=== PATIENT | female | born 1975 | race Caucasian/White ===

== ENCOUNTER 2016-10-19 22:10 | Observation (INO) | payer OTHER ==
[2016-10-19 22:21] VITALS: BMI 43.9
--- NOTE | 2016-10-19 22:33 | ED PDOC ---
Arrival/HPI - General Chief Complaint: Chest Pain Time Seen by Provider: 10/19/16 22:11 Historian: Patient - History of Present Illness Narrative History of Present Illness (Text): 10/19/16 22:33 Catalina Cisneros is a 40 year old female, whose past medical history includes diabetes, who presents to the Emergency department complaining of left-sided chest pain radiating to left shoulder for 4 days. Patient reports associated exertional dyspnea. Patient also notes she has been experiencing elevated blood sugars. Patient reports a family history of CAD. Patient denies any fever, chills, nausea, vomiting, diarrhea, urinary symptoms, back pain, neck pain, headache, dizziness, or any other complaints. Patietn states she regularly takes Metformin and insulin. Time/Duration: < week (4 days) Symptom Onset: Gradual Symptom Course: Unchanged Activities at Onset: Rest, Light Context: Home Past Medical History - Provider Review Nursing Documentation Reviewed: Yes - Infectious Disease Hx of Infectious Diseases: None - Tetanus Immunization Tetanus Immunization: Unknown - Endocrine/Metabolic Hx Diabetes Mellitus Type 2: Yes - Musculoskeletal/Rheumatological Hx Falls: No - Psychiatric Hx Depression: No Hx Emotional Abuse: No Hx Physical Abuse: No Hx Substance Use: No - Anesthesia Hx Anesthesia: No - Suicidal Assessment Feels Threatened In Home Enviroment: No Family/Social History - Physician Review Nursing Documentation Reviewed: Yes Family/Social History: Unknown Family HX Smoking Status: Never Smoked Hx Alcohol Use: No Hx Substance Use: No Hx Substance Use Treatment: No Allergies/Home Meds Allergies/Adverse Reactions: Allergies shellfish Allergy (Intermediate, Uncoded 10/19/16 22:23) RASH Home Medications: Home Meds Medication Instructions Recorded Confirmed Insulin NPH Human Isophane 30 unit SQ HS 10/19/16 10/19/16 [Novolin N] metFORMIN [glucOPHAGE] 500 mg PO BID 10/19/16 10/19/16 Review of Systems - Physician Review All systems were reviewed & negative as marked: Yes - Review of Systems Constitutional: Normal. absent: Fevers Eyes: Normal ENT: Normal Cardiovascular: Chest Pain, ZIMMERMAN Gastrointestinal: Normal. absent: Abdominal Pain, Diarrhea, Nausea, Vomiting Genitourinary Female: Normal. absent: Dysuria, Frequency, Hematuria, Urine Output Changes Musculoskeletal: Normal. absent: Neck Pain Skin: Normal. absent: Rash Neurological: Normal. absent: Headache, Dizziness Hemo/Lymphatic: Normal Psychiatric: Normal Physical Exam Vital Signs Reviewed: Yes Vital Signs Temp Pulse Resp BP Pulse Ox 10/20/16 01:17 84 18 127/87 98 10/19/16 22:27 99.0 F 76 20 154/84 H 99 Temperature: Afebrile Blood Pressure: Hypertensive Pulse: Regular Respiratory Rate: Normal Appearance: Positive for: Well-Appearing, Non-Toxic, Comfortable Pain Distress: None Mental Status: Positive for: Alert and Oriented X 3 Finger Stick Blood Glucose: 413 - Systems Exam Head: Present: Atraumatic, Normocephalic Pupils: Present: PERRL Extroacular Muscles: Present: EOMI Conjunctiva: Present: Normal Mouth: Present: Moist Mucous Membranes Neck: Present: Normal Range of Motion Respiratory/Chest: Present: Clear to Auscultation, Good Air Exchange. No: Respiratory Distress, Accessory Muscle Use Cardiovascular: Present: Regular Rate and Rhythm, Normal S1, S2. No: Murmurs Abdomen: Present: Normal Bowel Sounds. No: Tenderness, Distention, Peritoneal Signs Back: Present: Normal Inspection Upper Extremity: Present: Normal Inspection. No: Cyanosis, Edema Lower Extremity: Present: Normal Inspection. No: Edema Neurological: Present: GCS=15, CN II-XII Intact, Speech Normal Skin: Present: Warm, Dry, Normal Color. No: Rashes Psychiatric: Present: Alert, Oriented x 3, Normal Insight, Normal Concentration Medical Decision Making ED Course and Treatment: 10/19/16 22:33 Impression: 40 year old female complaining of left-sided chest pain radiating to left shoulder with some exertional dyspnea. Plan: -- EKG -- Chest X-ray -- Labs, cardiac enzymes -- Aspirin -- Reassess and disposition Progress Notes: Reviewed EKG, NSR at [address]pm[address] Non-specific ST/T wave changes. 10/20/16 00:28 Reviewed radiology, Chest X-ray shows no acute processes. Case discussed with lpn or medical assistant and Dr. Mueller, who is aware and agrees with plan. Accepts pt in to hospitalist service. Pt will go to Telemetry observation for chest pain. chairman president and chief executive officer notified. Pt is no acute distress. Discussed results and hospital observation plan with pt , who is aware and verbalizes understanding. - Lab Interpretations Lab Results: 10/19/16 22:45 10/19/16 22:45 Lab Results 10/19/16 22:45: WBC 8.3 D, RBC 4.82, Hgb 13.4, Hct 39.3, MCV 81.5, MCH 27.8, MCHC 34.1, RDW 13.9, Plt Count 244, MPV 10.4 10/19/16 22:45: Sodium 135, Potassium 4.5, Chloride 100, Carbon Dioxide 25, Anion Gap 15, BUN 16, Creatinine 1.1, Est GFR ( Amer) > 60, Est GFR (Non- Af Amer) 54, Random Glucose 395 H* D, Calcium 9.4, Total Bilirubin 0.4, AST 21, ALT 34, Alkaline Phosphatase 97, Lactate Dehydrogenase 389, Total Creatine Kinase 113, Troponin I < 0.01, Total Protein 7.3, Albumin 4.2, Globulin 3.1, Albumin/Globulin Ratio 1.4 10/19/16 22:45: PT 10.3, INR 0.95, APTT 25.0 I have reviewed the lab results: Yes - RAD Interpretation Radiology Orders: 10/19/16 22:34 CHEST PORTABLE [RAD] Stat Hcc Coders: ED Physician - EKG Interpretation Interpreted by ED Physician: Yes Type: 12 lead EKG - Medication Orders Current Medication Orders: Insulin Human Regular (Humulin R Med) 0 units SC ACHS AARON PRN Reason: Protocol Discontinued Medications Aspirin (Aspirin) 325 mg PO ONCE STA Stop: 10/19/16 22:42 Last Admin: 10/19/16 23:08 Dose: 325 mg Sodium Chloride (Sodium Chloride 0.9%) 500 mls @ 500 mls/hr IV .Q1H STA Stop: 10/19/16 23:46 Last Admin: 10/19/16 23:05 Dose: 500 mls/hr Insulin Human Regular (Humulin R) 8 units SC STAT STA Stop: 10/19/16 22:49 Last Admin: 10/19/16 23:38 Dose: 8 units - Scribe Statement The provider has reviewed the documentation as recorded by the Jeannie Aviles Provider Scribe Attestation: All medical record entries made by the Scribe were at my direction and personally dictated by me. I have reviewed the chart and agree that the record accurately reflects my personal performance of the history, physical exam, medical decision making, and the department course for this patient. I have also personally directed, reviewed, and agree with the discharge instructions and disposition. Disposition/Present on Arrival - Present on Arrival Any Indicators Present on Arrival: No History of DVT/PE: No History of Uncontrolled Diabetes: No Urinary Catheter: No History of Decub. Ulcer: No History Surgical Site Infection Following: None - Disposition Have Diagnosis and Disposition been Completed?: Yes Diagnosis: Chest pain Disposition: HOSPITALIZED Disposition Time: 00:23 Patient Plan: Observation Patient Problems: Current Active Problems Problem Status Onset Chest pain Acute Condition: STABLE
[2016-10-19] MEDS ORDERED: Sodium Chloride 0.9% 500 ML IV STA (22:47)
[2016-10-19] MEDS ORDERED: Insulin Regular 1 UNITS/0.01 ML ML SC STA (22:48)
[2016-10-19 22:55] LABS: HEMATOCRIT 39.3 % (36.0-48.0); MEAN CELL VOLUME 81.5 fl (80.0-105.0); MEAN CORPUSCULAR HEMOGLOBIN 27.8 pg (25.0-35.0); MEAN CORPUSCULAR HGB CONC 34.1 g/dl (31.0-37.0); MEAN PLATELET VOLUME 10.4 fl (7.0-11.0); RED CELL DISTRIBUTION WIDTH 13.9 % (11.5-14.5); WHITE BLOOD COUNT 8.3 10^3/ul (4.5-11.0)
[2016-10-19 23:00] LABS: ALB/GLOB RATIO 1.4 (1.1-1.8); ALKALINE PHOSPHATASE 97 U/L (38-133); ALT/SGPT 34 U/L (7-56); AST/SGOT 21 U/L (15-39); BILIRUBIN,TOTAL 0.4 mg/dL (0.2-1.3); BLOOD UREA NITROGEN 16 mg/dL (7-21); CALCIUM 9.4 mg/dL (8.4-10.5); CARBON DIOXIDE 25 mmol/L (21-33); CHLORIDE 100 mmol/L (98-107); GFR AFRICAN-AMERICAN > 60; POTASSIUM 4.5 mmol/L (3.6-5.0); SODIUM 135 mmol/L (132-148); TOTAL PROTEIN 7.3 g/dL (5.8-8.3)
[2016-10-19 23:04] LABS: GLUCOSE,RANDOM 395 mg/dL (70-110)
[2016-10-19 23:06] LABS: INR 0.95 (0.93-1.08)
[2016-10-19 23:12] LABS: TROPONIN I < 0.01 ng/mL
[2016-10-20 01:18] VITALS: O2SAT 98
--- NOTE | 2016-10-20 05:35 | CP.PCM.HP ---
<Deisi Rizo - Last Filed: 10/20/16 05:52> History of Present Illness - History of Present Illness History of Present Illness: Deisi Rizo DO, PGY-1, Night Float CC: Chest pain 40 year old obese, diabetic female with 4 days of left-sided chest pain and 2 days of shortness of breath when going up two flights of stairs. She denies any diaphoresis, nausea, but admits to radiation of the pain into the left axilla. On further questioning she informs me that her at its the worst when she lays down at night. Important to note, that she takes Advil gel tablets regularly for left sided shoulder pain, and in the last four days started taking aspirin 4 in addition to the advil for the left-sided shoulder pain. 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 She She also complains of trouble controlling her blood sugar since switching from Novolin-R to Novolin-N. Her risk factors for CAD are poorly controlled DM, obesity, a mother with CAD with 2 stents. She also admits to recent stress from her being unemployed, and her having to take on a new job and manage 4 children at home. PMH: DM PSH: none Allergies: shellfish Medications: Advil, aspirin, Metformin 500 mg BID, Novolin-N 30 units in AM, 15 units before dinner FH: As above Social: As above, no drugs, but exposure of tobacco smoke from Present on Admission - Present on Admission Any Indicators Present on Admission: No Review of Systems - Constitutional Additional comments: weight fluctuations - EENT Eyes: absent: Blurred Vision, Exophthalmos, Loss of Peripheral Vision Ears: absent: Ear Discharge, Dizziness Nose/Mouth/Throat: absent: Bleeding Gums, Mouth Pain, Odynophagia - Cardiovascular Cardiovascular: absent: Irregular Heart Rhythm, Leg Edema, Pedal Edema - Respiratory Respiratory: Dyspnea on Exertion - Gastrointestinal Gastrointestinal: Belching, Bloating - Genitourinary Genitourinary: absent: Change in Urinary Stream, Hematuria, Urinary Frequency - Musculoskeletal Musculoskeletal: absent: Arthralgias, Atrophy, Joint Swelling - Integumentary Integumentary: absent: Changing Lesions, Hirsutism, New Lesions, Unusual Bruising - Neurological Neurological: absent: Abnormal Gait, Disequilibrium, Lack of Coordination - Psychiatric Psychiatric: absent: Behavioral Changes, Homicidal Ideation, Mood Swings - Endocrine Endocrine: absent: Change in Libido, Deepening of Voice, Heat Intolorance - Hematologic/Lymphatic Hematologic: absent: Easy Bleeding, Easy Bruising Past Patient History - Infectious Disease Hx of Infectious Diseases: None - Tetanus Immunizations Tetanus Immunization: Unknown - Past Social History Smoking Status: Never Smoked - ENDOCRINE/METABOLIC Hx Diabetes Mellitus Type 2: Yes - MUSCULOSKELETAL/RHEUMATOLOGICAL Hx Falls: No - PSYCHIATRIC Hx Depression: No Hx Emotional Abuse: No Hx Physical Abuse: No Hx Substance Use: No - SURGICAL HISTORY Hx Surgeries: No - ANESTHESIA Hx Anesthesia: No Meds Allergies/Adverse Reactions: Allergies Allergy/AdvReac Type Severity Reaction Status Date / Time shellfish Allergy Intermediate RASH Uncoded 10/19/16 22:23 Physical Exam - Constitutional Appears: Well, No Acute Distress - Head Exam Head Exam: ATRAUMATIC, NORMOCEPHALIC - Eye Exam Eye Exam: EOMI, Normal appearance, PERRL - ENT Exam ENT Exam: Mucous Membranes Moist, Normal Oropharynx - Neck Exam Neck exam: Positive for: Normal Inspection. Negative for: Lymphadenopathy, Thyromegaly - Respiratory Exam Respiratory Exam: Clear to Auscultation Bilateral, NORMAL BREATHING PATTERN. absent: Respiratory Distress - Cardiovascular Exam Cardiovascular Exam: +S1, +S2 Additional comments: bowel sounds heard on chest auscultation - GI/Abdominal Exam GI & Abdominal Exam: Normal Bowel Sounds, Soft. absent: Distended, Guarding, Rebound - Extremities Exam Extremities exam: Positive for: normal capillary refill, normal inspection, pedal pulses present. Negative for: pedal edema - Back Exam Back exam: absent: CVA tenderness (L), CVA tenderness (R) - Neurological Exam Neurological exam: Alert, CN II-XII Intact, Normal Gait, Oriented x3 - Psychiatric Exam Psychiatric exam: Normal Affect, Normal Mood - Skin Skin Exam: Dry, Intact, Normal Color, Warm Results - Vital Signs Recent Vital Signs: Last Vital Signs Temp 98.0 F 10/20/16 02:59 Pulse 79 10/20/16 02:59 Resp 20 10/20/16 02:59 BP 124/84 10/20/16 02:59 Pulse Ox 98 10/20/16 01:17 - Labs Result Diagrams: 10/19/16 22:45 10/19/16 22:45 Labs: Laboratory Results - last 24 hr 10/20/16 01:10 POC Glucose (mg/dL) 284 H - EKG Data EKG Interpreted by: Myself EKG shows normal: Sinus rhythm Rate: Normal Assessment & Plan - Assessment and Plan (Free Text) Assessment: 40 year old obese diabetic female with atypical chest pain and SOB. Plan: 1) Atypical chest pain in an obese, diabetic female - Initial EKG and troponin (-) - Follow troponin x 2 - Cardiology consulted - HgbA1c, TSH, Lipid Panel 2) DM, poorly controlled - Hold Metformin - Started ISS NPH medium - HHD, low carbohydrate diet 3) Possible reflux, exacerbated by NSAID use, aspirin, and underlying gastroparesis - Protonix 40 mg PO daily - Date & Time Date: 10/20/16 Time: 05:46 <Cami Mueller - Last Filed: 10/20/16 06:36> Results - Vital Signs Recent Vital Signs: Last Vital Signs Temp 98.0 F 10/20/16 02:59 Pulse 79 10/20/16 02:59 Resp 20 10/20/16 02:59 BP 124/84 10/20/16 02:59 Pulse Ox 98 10/20/16 01:17 - Labs Result Diagrams: 10/19/16 22:45 10/19/16 22:45 Labs: Laboratory Results - last 24 hr 10/20/16 01:10 POC Glucose (mg/dL) 284 H Attending/Attestation - Attestation I have personally seen and examined this patient.: Yes I have fully participated in the care of the patient.: Yes I have reviewed all pertinent clinical information: Yes Notes (Text): 10/20/16 06:31 Patient was seen when she was in -. Agree with history, physical examination, assessment and plan. States that her blood sugar was 496 mg % when she was home, had nagging pain in left shoulder and precordial area for 4 days , intermittent, had sob with climbing stairs yesterday, has PMH of IDDM, obesity, allergy to shellfish, has family history of following: both sides of family have DM, mother has heart disease, paternal grand mother has cancer of unknown location, father had DM and lung cancer, consumes alcohol occasionally, review of system shows that she gained 21 lbs in last 3 months, has seasonal allergies, bronchitis.
[2016-10-20 06:40] LABS: ALB/GLOB RATIO 1.3 (1.1-1.8); ALKALINE PHOSPHATASE 73 U/L (38-133); ALT/SGPT 31 U/L (7-56); AST/SGOT 20 U/L (15-39); BILIRUBIN,TOTAL 0.3 mg/dL (0.2-1.3); BLOOD UREA NITROGEN 15 mg/dL (7-21); CALCIUM 8.9 mg/dL (8.4-10.5); CARBON DIOXIDE 26 mmol/L (21-33); CHLORIDE 105 mmol/L (98-107); CHOLESTEROL 188 mg/dL (130-200); GFR AFRICAN-AMERICAN > 60; GLUCOSE,RANDOM 154 mg/dL (70-110); POTASSIUM 4.2 mmol/L (3.6-5.0); SODIUM 139 mmol/L (132-148); TOTAL PROTEIN 6.8 g/dL (5.8-8.3)
[2016-10-20] MEDS: Pantoprazole 40 mg EC Tab PO SCH ×2 (06:48→17:00)
[2016-10-20 07:21] LABS: TROPONIN I < 0.01 ng/mL
--- NOTE | 2016-10-20 07:38 | RAD ---
HISTORY: chest pain COMPARISON: No prior. FINDINGS: LUNGS: No active pulmonary disease. PLEURA: No evidence of pleural effusion. Mild nonspecific elevation of right hemidiaphragm. CARDIOVASCULAR: Normal. OSSEOUS STRUCTURES: No significant abnormalities. VISUALIZED UPPER ABDOMEN: Normal. OTHER FINDINGS: None. IMPRESSION: No active disease.
[2016-10-20] MEDS: Insulin Reg-MEDIUM-Coverage SC SCH ×3 (08:26→17:00)
[2016-10-20] MEDS: Enoxaparin 40 mg Syringe SC SCH (09:34)
[2016-10-20 17:48] VITALS: TEMP 98.4
--- NOTE | 2016-10-20 20:02 | CARD ---
APPROVED REPORT EKG Measurement Heart [id number] <Conclusion> Normal sinus rhythm Possible Left atrial enlargement Borderline ECG
[2016-10-20] MEDS ORDERED: Insulin Detemir 100 units/ml Vial (Levemir) SC SCH (22:00)
--- NOTE | 2016-10-21 00:59 | CON ---
CARDIOLOGY CONSULT REASON FOR CONSULTATION: Chest pain. HISTORY OF PRESENT ILLNESS: The patient is a 40-year-old female, originally from [facility], who has a history of diabetes mellitus, who presented because of left-sided chest pain radiating to left shoulder. The patient is unaware of any prior cardiac history. The patient did undergo echocardiography study recently at [facility] and was told it was normal. The patient denies any palpitation, dizziness or syncope. SOCIAL HISTORY: The patient is a nonsmoker, nondrinker. MEDICATIONS: Lovenox 40 mg subcutaneous once a daily, Protonix 40 mg p.o. twice a day, Nitrostat p.r.n. REVIEW OF SYSTEMS: No fever or chills. No productive cough. No vomiting or diarrhea. PHYSICAL EXAMINATION GENERAL: The patient is a middle-aged female, who does not appear to be in any distress. VITAL SIGNS: Blood pressure 137/79, heart rate 79, temperature 98.7, respirations 20. HEENT: Normocephalic. NECK: No JVD. CHEST: Clear. HEART: S1 and S2 regular. ABDOMEN: Soft. EXTREMITIES: No edema. LABORATORY DATA: SMA-7 is within normal limits except for glucose of 154. Hemoglobin A1c is elevated at 10.2, triglycerides elevated at 217, the rest of lipid profile is within limits. TSH level is within normal limits. CBC is within normal limits. . PT, PTT are within normal limits. EKG revealed sinus rhythm with possible left atrial enlargement. Two sets of troponins are negative. ASSESSMENT: 1. Chest pain, myocardial infraction is ruled-out. 2. Uncontrolled diabetes mellitus. 3. Hypertriglyceridemia. RECOMMENDATIONS: Continue prophylactic subcutaneous Lovenox. Continue nitroglycerin, start aspirin 81 mg once a day, obtain an echocardiogram. Ethan Douglass MD
[2016-10-21] MEDS: Insulin Reg-MEDIUM-Coverage SC SCH ×5 (04:48→21:41)
[2016-10-21] MEDS: Pantoprazole 40 mg EC Tab PO SCH ×2 (06:01→17:11)
[2016-10-21 08:15] LABS: HEMATOCRIT 40.7 % (36.0-48.0); MEAN CELL VOLUME 80.8 fl (80.0-105.0); MEAN CORPUSCULAR HEMOGLOBIN 28.2 pg (25.0-35.0); MEAN CORPUSCULAR HGB CONC 34.9 g/dl (31.0-37.0); RED CELL DISTRIBUTION WIDTH 14.2 % (11.5-14.5); WHITE BLOOD COUNT 8.3 10^3/ul (4.5-11.0)
[2016-10-21 08:27] LABS: ALB/GLOB RATIO 1.2 (1.1-1.8); ALKALINE PHOSPHATASE 72 U/L (38-133); ALT/SGPT 33 U/L (7-56); AST/SGOT 16 U/L (15-39); BLOOD UREA NITROGEN 14 mg/dL (7-21); CARBON DIOXIDE 22 mmol/L (21-33); CHLORIDE 101 mmol/L (95-110); GFR AFRICAN-AMERICAN > 60; POTASSIUM 4.3 mmol/L (3.6-5.0); SODIUM 133 mmol/L (132-148); TOTAL PROTEIN 7.4 g/dL (5.8-8.3)
[2016-10-21 08:35] LABS: GLUCOSE,RANDOM 320 mg/dL (70-110)
[2016-10-21] MEDS: Enoxaparin 40 mg Syringe SC SCH (09:56)
[2016-10-21 11:54] VITALS: RESP 20
--- NOTE | 2016-10-21 15:13 | CARD ---
APPROVED REPORT EXAM: Two-dimensional and M-mode echocardiogram with Doppler and color Doppler. INDICATION Chest Pain 2D DIMENSIONS Left Atrium (2D)3.6 (1.6-4.0cm)IVSd1.1 (0.7-1.1cm) LVDd3.9 (3.9-5.9cm)PWd1.0 (0.7-1.1cm) LVDs2.6 (2.5-4.0cm)FS (%) 33.0 % LVEF (%)62.3 (>50%) M-Mode DIMENSIONS Aortic Root2.40 (2.2-3.7cm)Aortic Cusp Exc.1.70 (1.5-2.0cm) Aortic Valve AoV Peak Evoyjeea567.0cm/Aniceto Peak GR.8mmHg Mitral Valve MV E Zijfvvod69.9cm/sMV A Kpffjldn38.2cm/sE/A ratio1.0 TDI E/Lateral E'0.0E/Medial E'0.0 Tricuspid Valve TR Peak [id number]/sRAP [id number] Peak Gr.14mmHg [id number] LEFT VENTRICLE The left ventricle is normal size. There is normal left ventricular wall thickness. The left ventricular function is normal. The left ventricular ejection fraction is within the normal range. There is normal LV segmental wall motion. Transmitral Doppler flow pattern is Grade I-abnormal relaxation pattern. RIGHT VENTRICLE The right ventricle is normal size. There is normal right ventricular wall thickness. The right ventricular systolic function is normal. ATRIA The left atrium size is normal. The right atrium size is normal. AORTIC VALVE The aortic valve is not well visualized. No aortic regurgitation is present. There is no aortic valvular stenosis. MITRAL VALVE The mitral valve is normal in structure. There is no mitral valve regurgitation noted. TRICUSPID VALVE The tricuspid valve is normal in structure. GREAT VESSELS The aortic root is normal in size. The IVC was not visualized. <Conclusion> The left ventricle is normal size. There is normal left ventricular wall thickness. The left ventricular function is normal. The left ventricular ejection fraction is within the normal range. There is normal LV segmental wall motion. Transmitral Doppler flow pattern is Grade I-abnormal relaxation pattern.
--- NOTE | 2016-10-21 16:07 | CP.PCM.DIS ---
<COLIN LOMAS - Last Filed: 10/21/16 20:59> Provider - Provider Date of Admission: 10/20/16 00:19 Attending physician: Huy Holland MD Primary care physician: NO PRIMARY CARE PROVIDER Consults: Cardio: Rafat Time Spent in preparation of Discharge (in minutes): 45 Hospital Course - Lab Results Lab Results: Most Recent Lab Values WBC 8.3 10^3/ul (4.5-11.0) 10/21/16 08:00 RBC 5.04 10^6/uL (3.5-6.1) 10/21/16 08:00 Hgb 14.2 g/dL (12.0-16.0) 10/21/16 08:00 Hct 40.7 % (36.0-48.0) 10/21/16 08:00 MCV 80.8 fl (80.0-105.0) 10/21/16 08:00 MCH 28.2 pg (25.0-35.0) 10/21/16 08:00 MCHC 34.9 g/dl (31.0-37.0) 10/21/16 08:00 RDW 14.2 % (11.5-14.5) 10/21/16 08:00 Plt Count 259 10^3/uL (120.0-450.0) 10/21/16 08:00 MPV 10.0 fl (7.0-11.0) 10/21/16 08:00 PT 10.3 Seconds (9.9-11.8) 10/19/16 22:45 INR 0.95 (0.93-1.08) 10/19/16 22:45 APTT 25.0 Seconds (23.7-30.8) 10/19/16 22:45 D-Dimer, Quantitative 0.24 mg/L FEU (0-0.50) 10/20/16 12:55 Sodium 133 mmol/L (132-148) 10/21/16 08:00 Potassium 4.3 mmol/L (3.6-5.0) 10/21/16 08:00 Chloride 101 mmol/L (95-110) 10/21/16 08:00 Carbon Dioxide 22 mmol/L (21-33) 10/21/16 08:00 Anion Gap 14 (10-20) 10/21/16 08:00 BUN 14 mg/dL (7-21) 10/21/16 08:00 Creatinine 0.6 mg/dL (0.5-1.4) 10/21/16 08:00 Est GFR ( Amer) > 60 10/21/16 08:00 Est GFR (Non-Af Amer) > 60 10/21/16 08:00 POC Glucose (mg/dL) 365 mg/dL (65-110) H 10/21/16 11:08 Random Glucose 320 mg/dL (70-110) H* 10/21/16 08:00 Hemoglobin A1c 10.2 % (4.2-6.5) H 10/20/16 05:45 Calcium 9.0 mg/dL (8.4-10.5) 10/21/16 08:00 Total Bilirubin 1.0 mg/dL (0.2-1.3) 10/21/16 08:00 AST 16 U/L (15-39) 10/21/16 08:00 ALT 33 U/L (7-56) 10/21/16 08:00 Alkaline Phosphatase 72 U/L (38-133) 10/21/16 08:00 Lactate Dehydrogenase 389 U/L (333-699) 10/19/16 22:45 Total Creatine Kinase 113 U/L (35-230) 10/19/16 22:45 Troponin I < 0.01 ng/mL 10/20/16 12:55 NT-Pro-B Natriuret Pep 132 pg/mL (0-450) 10/20/16 05:45 Total Protein 7.4 g/dL (5.8-8.3) 10/21/16 08:00 Albumin 4.0 g/dL (3.0-4.8) 10/21/16 08:00 Globulin 3.4 gm/dL 10/21/16 08:00 Albumin/Globulin Ratio 1.2 (1.1-1.8) 10/21/16 08:00 Triglycerides 217 mg/dL (35-160) H 10/20/16 05:45 Cholesterol 188 mg/dL (130-200) 10/20/16 05:45 LDL Cholesterol Direct 112 mg/dL (0-129) 10/20/16 05:45 HDL Cholesterol 35 mg/dL (29-60) 10/20/16 05:45 TSH 3rd Generation 3.96 mIU/mL (0.46-4.68) 10/20/16 05:45 Urine HCG, Qual Negative (NEGATIVE) 10/20/16 16:22 - Hospital Course Hospital Course: 40 year old obese, diabetic female with 4 days of left-sided chest pain and 2 days of shortness of breath when going up two flights of stairs. She denied any diaphoresis, nausea, but admits to radiation of the pain into the left axilla. On further questioning she informs me that her at its the worst when she lays down at night. Important to note, that she takes Advil gel tablets regularly for left sided shoulder pain, and in the last four days started taking aspirin 4 in addition to the advil for the left-sided shoulder pain. 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 She also complained of trouble controlling her blood sugar since switching from Novolin- R to Novolin-N. Her risk factors for CAD are poorly controlled DM, obesity, a mother with CAD with 2 stents. She also admits to recent stress from her being unemployed, and her having to take on a new job and manage 4 children at home. In the ED, labs and imaging were obtained. Labs were unremarkable aside from elevated glucose at 395. EKG showed NSR. Troponin x1 was negative. CXR showed no active disease. Pt was admitted for chest pain r/o acs. Cardio consulted recommended lovenox, ASA, nitroglycerin and echo. Echo showed EF of 62.3%. Troponin trended was negative x2. Lipid panel and TSH is WNL. Today pt was seen and examined at bedside. Pt denies any acute overnight events. Pt denies CP, SOB, n/v/d, chills, fever, abdominal pain, HERMAN, dizziness, dysuria, or constipation. Pt discharged and instructed to increase Metformin to 1000 mg BID and increase Insulin NPH to 30 units twice a day. Pt also advised to follow up with PMD and cardiology outpatient. Discharge Exam - Head Exam Head Exam: ATRAUMATIC, NORMOCEPHALIC - Eye Exam Eye Exam: EOMI, PERRL - ENT Exam ENT Exam: Mucous Membranes Moist - Neck Exam Neck exam: Full Rom - Respiratory Exam Respiratory Exam: Clear to PA & Lateral. absent: Rales, Rhonchi, Wheezes - Cardiovascular Exam Cardiovascular Exam: RRR, +S1, +S2. absent: Diastolic murmur, Gallop, Rubs, Systolic Murmur - GI/Abdominal Exam GI & Abdominal Exam: Soft. absent: Distended, Guarding, Organomegaly, Rebound, Rigid, Tenderness - Extremities Exam Extremities exam: normal inspection - Back Exam Back exam: NORMAL INSPECTION - Neurological Exam Neurological exam: Alert, CN II-XII Intact, Oriented x3, Reflexes Normal - Psychiatric Exam Psychiatric exam: Normal Affect, Normal Mood - Skin Skin Exam: Dry, Intact, Normal Color, Warm Discharge Plan - Discharge Medications Prescriptions: Insulin NPH Human Isophane [Novolin N] 30 unit SQ AMHS #2 metFORMIN [glucOPHAGE] 1,000 mg PO BID #30 - Follow Up Plan Condition: STABLE Disposition: HOME/ ROUTINE Instructions: Chest Pain (DC), Chest Pain (GEN), Diabetes Mellitus Type 2 in Adults (DC), Diabetes Mellitus Type 2 in Adults (GEN) Additional Instructions: 1. Follow with PMD of your choice within 1 week 2. Follow with statistician applied within 1 week 3. Take medications as prescribed: Metformin 1000 mg twice a day, Insulin NPH 30 units in morning and evening 4. Return to ED if condition or symptoms worsen Referrals: Ethan Douglass MD [Staff Provider] - PCP,ROGER [Primary Care Provider] - <Huy Holland - Last Filed: 10/22/16 07:35> Provider - Provider Date of Admission: 10/20/16 00:19 Attending physician: Huy Holland MD Primary care physician: ROGER PRIMARY CARE PROVIDER Hospital Course - Lab Results Lab Results: Most Recent Lab Values WBC 8.3 10^3/ul (4.5-11.0) 10/21/16 08:00 RBC 5.04 10^6/uL (3.5-6.1) 10/21/16 08:00 Hgb 14.2 g/dL (12.0-16.0) 10/21/16 08:00 Hct 40.7 % (36.0-48.0) 10/21/16 08:00 MCV 80.8 fl (80.0-105.0) 10/21/16 08:00 MCH 28.2 pg (25.0-35.0) 10/21/16 08:00 MCHC 34.9 g/dl (31.0-37.0) 10/21/16 08:00 RDW 14.2 % (11.5-14.5) 10/21/16 08:00 Plt Count 259 10^3/uL (120.0-450.0) 10/21/16 08:00 MPV 10.0 fl (7.0-11.0) 10/21/16 08:00 PT 10.3 Seconds (9.9-11.8) 10/19/16 22:45 INR 0.95 (0.93-1.08) 10/19/16 22:45 APTT 25.0 Seconds (23.7-30.8) 10/19/16 22:45 D-Dimer, Quantitative 0.24 mg/L FEU (0-0.50) 10/20/16 12:55 Sodium 133 mmol/L (132-148) 10/21/16 08:00 Potassium 4.3 mmol/L (3.6-5.0) 10/21/16 08:00 Chloride 101 mmol/L (95-110) 10/21/16 08:00 Carbon Dioxide 22 mmol/L (21-33) 10/21/16 08:00 Anion Gap 14 (10-20) 10/21/16 08:00 BUN 14 mg/dL (7-21) 10/21/16 08:00 Creatinine 0.6 mg/dL (0.5-1.4) 10/21/16 08:00 Est GFR ( Amer) > 60 10/21/16 08:00 Est GFR (Non-Af Amer) > 60 10/21/16 08:00 POC Glucose (mg/dL) 319 mg/dL (65-110) H 10/21/16 16:19 Random Glucose 320 mg/dL (70-110) H* 10/21/16 08:00 Hemoglobin A1c 10.2 % (4.2-6.5) H 10/20/16 05:45 Calcium 9.0 mg/dL (8.4-10.5) 10/21/16 08:00 Total Bilirubin 1.0 mg/dL (0.2-1.3) 10/21/16 08:00 AST 16 U/L (15-39) 10/21/16 08:00 ALT 33 U/L (7-56) 10/21/16 08:00 Alkaline Phosphatase 72 U/L (38-133) 10/21/16 08:00 Lactate Dehydrogenase 389 U/L (333-699) 10/19/16 22:45 Total Creatine Kinase 113 U/L (35-230) 10/19/16 22:45 Troponin I < 0.01 ng/mL 10/20/16 12:55 NT-Pro-B Natriuret Pep 132 pg/mL (0-450) 10/20/16 05:45 Total Protein 7.4 g/dL (5.8-8.3) 10/21/16 08:00 Albumin 4.0 g/dL (3.0-4.8) 10/21/16 08:00 Globulin 3.4 gm/dL 10/21/16 08:00 Albumin/Globulin Ratio 1.2 (1.1-1.8) 10/21/16 08:00 Triglycerides 217 mg/dL (35-160) H 10/20/16 05:45 Cholesterol 188 mg/dL (130-200) 10/20/16 05:45 LDL Cholesterol Direct 112 mg/dL (0-129) 10/20/16 05:45 HDL Cholesterol 35 mg/dL (29-60) 10/20/16 05:45 TSH 3rd Generation 3.96 mIU/mL (0.46-4.68) 10/20/16 05:45 Urine HCG, Qual Negative (NEGATIVE) 10/20/16 16:22 Attending/Attestation - Attestation I have personally seen and examined this patient.: Yes I have fully participated in the care of the patient.: Yes I have reviewed all pertinent clinical information, including history, physical exam and plan: Yes Notes (Text): 10/21/16 40 year old feamle with past medical history of diabetes who presented with complaint of chest pain. Serial cardiac enzymes were negative and ACS was ruled out. Her chest pain resolved. Her sugars were poorly controlled and we recommended to increase her metformin and NPH insulin doses. Patient is discharged home to follow up at [facility]. Follow up with cardiology for outpatient stress test. Huy Holland MD Hospitalist.
[2016-10-21 18:36] VITALS: BP 115/85; PULSE 82
--- NOTE | 2016-10-21 22:30 | PN ---
DATE: 10/21/2016 SUBJECTIVE: The patient denies any chest pain. PHYSICAL EXAMINATION VITAL SIGNS: Blood pressure 123/77, heart rate 80, temperature 98.4, respirations 20. HEENT: Normocephalic. CARDIOPULMONARY: S1 and S2 regular. CHEST: Clear. EXTREMITIES: No edema. LABORATORY DATA: Today CBC is entirely within normal limits. Today's SMA-7 is within normal limits except for glucose of 320. Echocardiographic study revealed normal ventricular size, wall thickness, and ejection fraction. ASSESSMENT: 1. Chest pain, myocardial infarction was ruled out. 2. Uncontrolled diabetes mellitus. 3. Hypertriglyceridemia. RECOMMENDATIONS: We will continue current aspirin, Protonix, and p.r.n. sublingual nitroglycerin. PT, PTT, and INR were within normal limits and I recommend an outpatient stress test. Ethan Douglass MD
== END 2016-10-21 22:49 | disposition home or self-care (01) ==
LOC: ED 22:10 → ERH 10-20 00:19 → 2RNO 10-20 03:44
PROVIDERS: ADMIT Internal Medicine; ATTEND Internal Medicine
DX: E11.65 Type 2 diabetes mellitus with hyperglycemia (principal); R07.89 Other chest pain; M25.512 Pain in left shoulder; E78.1 Pure hyperglyceridemia; E66.9 Obesity, unspecified; Z79.4 Long term (current) use of insulin; Z82.49 Family history of ischemic heart disease and other diseases of the circulatory system
CPT/HCPCS: 36415; 71010; 80053; 80061; 82550; 82948; 83036; 83615; 83880; 84443; 84484; 84703; 85027; 85378; 85610; 85730; 93005; 93306; 96372; 99285; G0378; J1650; J7040